=== PATIENT | male | born 1990 | race Caucasian/White ===

== ENCOUNTER 2017-11-06 12:14 | Emergency (ER) | payer MEDICAID ==
[2017-11-06] MEDS ORDERED: methylPREDNISolone 125 MG* 2 ML VIAL IV ONE (12:22)
[2017-11-06] MEDS ORDERED: Famotidine IV* 10 MG/ML 2 ML (20 mg) IV ONE (12:22)
[2017-11-06] MEDS ORDERED: diPHENhydraMINE IV* 50 MG/ML 1 ml VIAL (BENADRYL) IV ONE (12:22)
[2017-11-06] MEDS ORDERED: NS 0.9% 1000 ML* 1,000 ML IV SCH (12:30)
[2017-11-06] MEDS ORDERED: Albuterol 2.5 MG/3 ML NEB.SOL* (0.083%) INH ONE (12:33)
[2017-11-06] MEDS ORDERED: EPINEPHrine AMP 1 MG/ML IM ONE (12:35)
[2017-11-06] MEDS ORDERED: NS 0.9% 1000 ML* 2,000 ML IV ONE (14:02)
[2017-11-06 15:37] VITALS: BP 97/60
--- NOTE | 2017-11-06 16:35 | ED ---
Bel Green Thomas, scribed for Rodrigo Magaña MD on 11/06/17 at 1306 . Allergic Reaction/Systemic - HPI Summary HPI Summary: The patient is a 27 year old male who presents to the emergency department after an allergic reaction to eggs about 30 minutes to an hour ago. His throat began swelling, he began wheezing, and he felt his eyes closing. He has hives on his upper back. - History of Current Complaint Chief Complaint: EDAllergicReaction Time Seen by Provider: 11/06/17 12:21 Hx Obtained From: Patient Onset/Duration: Sudden Onset, Started minutes ago - 30-60 minutes ago., Still Present, Worse Since Timing: Constant, Lasting Minutes Severity Initially: Moderate Severity Currently: Moderate Pain Intensity: 0 Character: Swelling, Hives Aggravating Factor(s): Nothing Alleviating Factor(s): Epinephrine Associated Signs And Symptoms: Positive: Cough Wheezing, Difficulty Breathing, Rash, Throat Tightening, Other: - Eyes closing from the hives. - Related Hx Possible Reaction To: Food - Eggs - Allergies/Home Medications Allergies/Adverse Reactions: Allergies Allergy/AdvReac Type Severity Reaction Status Date / Time Eggs or Egg-derived Products Allergy Hives/Diff. Verified 11/06/17 12:28 Breathing/I tching Ibuprofen Allergy Difficulty Verified 11/06/17 12:36 Breathing PMH/Surg Hx/FS Hx/Imm Hx Previously Healthy: Yes Opthamlomology History: Denies: Hx Legally Blind EENT History: Denies: Hx Deafness Infectious Disease History: No Infectious Disease History: Denies: Traveled Outside the [place] in Last 30 Days - Family History Known Family History: Positive: Other - Patient denies relevant FHx - Social History Alcohol Use: None Substance Use Type: Reports: None, Other Substance Use Comment - Amount & Last Used: "pain killers" none x 10 days Smoking Status (MU): Never Smoked Tobacco Review of Systems Eyes: Other - Closing eyes due to swelling. ENT: Other - Throat swelling Respiratory: Other - wheezing Positive: Rash - Face and upper back All Other Systems Reviewed And Are Negative: Yes Physical Exam - Summary Physical Exam Summary: General: well-appearing, no pain distress Skin: warm, color reflects adequate perfusion, dry. There are hives on the face , chest, arms, and back. Head: normal Eyes: EOMI, YONATHAN ENT: He has a hoarse voice. The posterior pharynx is open. Neck: supple, nontender Respiratory: No obvious respiratory distress. Bilateral expiratory wheezing Cardiovascular: RRR Abdomen: soft, nontender Bowel: present Musculoskeletal: normal, strength/ROM intact Neurological: normal, sensory/motor intact, A&O x3 Psychological: He is anxious. Triage Information Reviewed: Yes Vital Signs On Initial Exam: Initial Vitals Temp Pulse Resp BP Pulse Ox 98.6 F 77 22 108/66 95 11/06/17 12:16 11/06/17 12:16 11/06/17 12:16 11/06/17 12:16 11/06/17 12:16 Vital Signs Reviewed: Yes Diagnostics - Vital Signs Vital Signs Temp Pulse Resp BP Pulse Ox 11/06/17 12:47 67 14 97 11/06/17 12:25 77 95 11/06/17 12:22 101/60 11/06/17 12:16 98.6 F 77 22 108/66 95 - Laboratory Lab Statement: Any lab studies that have been ordered have been reviewed, and results considered in the medical decision making process. Allergic Reaction Course/Dx - Course Course Of Treatment: Medications reviewed. Allergies noted. SX IMPROVED IN ED. PATIENT ELOPED WITHOUT DISCHARGE INSTRUCTIONS. - Diagnoses Provider Diagnoses: Allergic reaction - Critical Care Time Critical Care Time: 30-74 min Discharge - Discharge Plan Condition: Stable Disposition: OTHER Discharge Disposition Comment: ELOPED Referrals: No Primary Care Phys,NOPCP [Primary Care Provider] - The documentation as recorded by the Bel irving Thomas accurately reflects the service I personally performed and the decisions made by me, Rodrigo Magaña MD.
== END 2017-11-06 16:05 ==
LOC: ED 12:14
DX: T78.49XA Other allergy, initial encounter (principal); R05 Cough; R06.02 Shortness of breath; R21 Rash and other nonspecific skin eruption; X58.XXXA Exposure to other specified factors, initial encounter
CPT/HCPCS: 94640; 96372; 96374; 96375; 99283; J0171

== ENCOUNTER 2017-11-10 13:06 | Emergency (ER) | payer MEDICAID ==
[2017-11-10 13:17] VITALS: BP 110/64
[2017-11-10 14:14] LABS: Urine Appearance Clear; Urine Blood Negative (Negative); Urine Color Yellow; Urine Ketones Negative (Negative); Urine Protein Negative (Negative); Urine Specific Gravity 1.013 (1.010-1.030); Urine Urobilinogen Negative (Negative)
[2017-11-10 14:19] LABS: ABS Basophils 0 10^3/ul (0-0.2); ABS Eosinophils 0.1 10^3/ul (0-0.6); ABS Lymphocytes 1.3 10^3/ul (1.0-4.8); ABS Monocytes 0.4 10^3/ul (0-0.8); ABS Neutrophils 7.7 10^3/ul (1.5-7.7); ABS Nucleated RBC 0 10^3/ul; Eosinophil % 1.1 % (0-6); Hematocrit 46 % (42-52); Hemoglobin 16.1 g/dl (14.0-18.0); Lymphocyte % 13.3 % (25-47); Mean Corpuscular HGB Conc 35 g/dl (31-36); Mean Corpuscular Hemoglobin 30 pg (27-31); Mean Corpuscular Volume 85 fL (80-94); Mean Platelet Volume 10 um3 (7.4-10.4); Nucleated Red Blood Cells % 0.1; Platelet Count 215 10^3/ul (150-450); Red Blood Count 5.39 10^6/ul (4.0-5.4); Red Cell Distribution Width 13 % (10.5-15); White Blood Count 9.5 10^3/ul (3.5-10.8)
[2017-11-10 14:34] LABS: EGFR Non-African American 117.7 (>60)
--- NOTE | 2017-11-12 07:47 | ED ---
Clem Green Angela, scribed for Robert Peña MD on 11/10/17 at 1401 . Psychiatric Complaint - HPI Summary HPI Summary: This pt is a 27 y/o male presenting to [facility] via police officers on a 9.41. Pt reports he has SI thoughts and plan. He notes he has a history of depression. Pt states he has had recent stress that has recently triggered his SI thoughts. Pt is currently at [facility], he states that he can't function there because he has been having "bad thoughts." - History Of Current Complaint Chief Complaint: EDMentalHealth Time Seen by Provider: 11/10/17 13:41 Hx Obtained From: Patient Onset/Duration: Lasting Days, Still Present Timing: Days Severity Currently: Severe Character: Depressed Aggravating Factor(s): Recent Stress Alleviating Factor(s): Nothing Associated Signs And Symptoms: Positive: Confused Has Suicidal: Reports: Thoughts, With A Plan - Allergies/Home Medications Allergies/Adverse Reactions: Allergies Allergy/AdvReac Type Severity Reaction Status Date / Time Eggs or Egg-derived Products Allergy Hives/Diff. Verified 11/10/17 13:53 Breathing/I tching Ibuprofen Allergy Difficulty Verified 11/10/17 13:53 Breathing PMH/Surg Hx/FS Hx/Imm Hx Respiratory History: Reports: Hx Asthma Sensory History: Denies: Hx Legally Blind, Hx Deafness Opthamlomology History: Denies: Hx Legally Blind Psychiatric History: Reports: Hx Attention Deficit Hyperactivity Disorder, Hx Depression Infectious Disease History: No Infectious Disease History: Denies: Traveled Outside the [place] in Last 30 Days - Family History Known Family History: Positive: Other - Patient denies relevant FHx Negative: Cardiac Disease, Hypertension, Diabetes - Social History Alcohol Use: None Substance Use Type: Reports: Heroin, Other Substance Use Comment - Amount & Last Used: "pain killers" none x 10 days Smoking Status (MU): Light Every Day Tobacco Smoker Review of Systems Negative: Fever, Chills Eyes: Negative ENT: Negative Psychological: Other - SI thoughts Positive: Depressed All Other Systems Reviewed And Are Negative: Yes Physical Exam - Summary Physical Exam Summary: VITAL SIGNS: Reviewed. GENERAL: Patient is a well-developed and nourished male. Patient is not in any acute respiratory distress. HEAD AND FACE: No signs of trauma. No ecchymosis, hematomas or skull depressions. No sinus tenderness. EYES: PERRLA, EOMI x 2, No injected conjunctiva, no nystagmus. EARS: Hearing grossly intact. Ear canals and tympanic membranes are within normal limits. MOUTH: Oropharynx within normal limits. NECK: Supple, trachea is midline, no adenopathy, no JVD, no carotid bruit, no c- spine tenderness, neck with full ROM. CHEST: Symmetric, no tenderness at palpation LUNGS: Clear to auscultation bilaterally. No wheezing or crackles. CVS: Regular rate and rhythm, S1 and S2 present, no murmurs or gallops appreciated. ABDOMEN: Soft, non-tender. No signs of distention. No rebound no guarding, and no masses palpated. Bowel sounds are normal. EXTREMITIES: FROM in all major joints, no edema, no cyanosis or clubbing. NEURO: Alert and oriented x 3. No acute neurological deficits. Speech is normal and follows commands. SKIN: Dry and warm Triage Information Reviewed: Yes Vital Signs On Initial Exam: Initial Vitals Temp Pulse Resp BP Pulse Ox 98.8 F 74 18 110/64 97 11/10/17 13:13 11/10/17 13:13 11/10/17 13:13 11/10/17 13:13 11/10/17 13:13 Vital Signs Reviewed: Yes Diagnostics - Vital Signs Vital Signs Temp Pulse Resp BP Pulse Ox 11/10/17 13:13 98.8 F 74 18 110/64 97 - Laboratory Lab Results: Lab Results 11/10/17 11/10/17 11/10/17 Range/Units 13:50 13:50 14:11 WBC (3.5-10.8) 10^3/ul RBC (4.0-5.4) 10^6/ul Hgb (14.0-18.0) g/dl Hct (42-52) % MCV (80-94) fL MCH (27-31) pg MCHC (31-36) g/dl RDW (10.5-15) % Plt Count (150-450) 10^3/ul MPV (7.4-10.4) um3 Neut % (Auto) (38-83) % Lymph % (Auto) (25-47) % [place] % (Auto) (1-9) % Eos % (Auto) (0-6) % Baso % (Auto) (0-2) % Absolute Neuts (auto) (1.5-7.7) 10^3/ul Absolute Lymphs (auto) (1.0-4.8) 10^3/ul Absolute Monos (auto) (0-0.8) 10^3/ul Absolute Eos (auto) (0-0.6) 10^3/ul Absolute Basos (auto) (0-0.2) 10^3/ul Absolute Nucleated RBC 10^3/ul Nucleated RBC % Sodium 137 (133-145) mmol/L Potassium 4.3 (3.5-5.0) mmol/L Chloride 104 (101-111) mmol/L Carbon Dioxide 27 (22-32) mmol/L Anion Gap 6 (2-11) mmol/L BUN 8 (6-24) mg/dL Creatinine 0.78 (0.67-1.17) mg/dL Est GFR ( Amer) 151.3 (>60) Est GFR (Non-Af Amer) 117.7 (>60) BUN/Creatinine Ratio 10.3 (8-20) Glucose 115 H (70-100) mg/dL Calcium 9.7 (8.6-10.3) mg/dL Total Bilirubin 0.50 (0.2-1.0) mg/dL AST 28 (13-39) U/L ALT 29 (7-52) U/L Alkaline Phosphatase 68 (34-104) U/L Total Protein 7.2 (6.4-8.9) g/dL Albumin 4.5 (3.2-5.2) g/dL Globulin 2.7 (2-4) g/dL Albumin/Globulin Ratio 1.7 (1-3) TSH 0.66 (0.34-5.60) mcIU/mL Urine Color Yellow Urine Appearance Clear Urine pH 8.0 (5-9) Ur Specific [place] 1.013 (1.010-1.030) Urine Protein Negative (Negative) Urine Ketones Negative (Negative) Urine Blood Negative (Negative) Urine Nitrate Negative (Negative) Urine Bilirubin Negative (Negative) Urine Urobilinogen Negative (Negative) Ur Leukocyte Esterase Negative (Negative) Urine Glucose Negative (Negative) Salicylates < 2.50 (<30) mg/dL Urine Opiates Screen None detected (None Detect) Acetaminophen < 15 mcg/mL Ur Barbiturates Screen None detected (None Detect) Ur Phencyclidine Scrn None detected (None Detect) Ur Amphetamines Screen None detected (None Detect) U Benzodiazepines Scrn None detected (None Detect) Urine Cocaine Screen None detected (None Detect) U Cannabinoids Screen None detected (None Detect) Serum Alcohol < 10 (<10) mg/dL 11/10/17 Range/Units 14:11 WBC 9.5 (3.5-10.8) 10^3/ul RBC 5.39 (4.0-5.4) 10^6/ul Hgb 16.1 (14.0-18.0) g/dl Hct 46 (42-52) % MCV 85 (80-94) fL MCH 30 (27-31) pg MCHC 35 (31-36) g/dl RDW 13 (10.5-15) % Plt Count 215 (150-450) 10^3/ul MPV 10 (7.4-10.4) um3 Neut % (Auto) 80.8 (38-83) % Lymph % (Auto) 13.3 L (25-47) % [place] % (Auto) 4.3 (1-9) % Eos % (Auto) 1.1 (0-6) % Baso % (Auto) 0.5 (0-2) % Absolute Neuts (auto) 7.7 (1.5-7.7) 10^3/ul Absolute Lymphs (auto) 1.3 (1.0-4.8) 10^3/ul Absolute Monos (auto) 0.4 (0-0.8) 10^3/ul Absolute Eos (auto) 0.1 (0-0.6) 10^3/ul Absolute Basos (auto) 0 (0-0.2) 10^3/ul Absolute Nucleated RBC 0 10^3/ul Nucleated RBC % 0.1 Sodium (133-145) mmol/L Potassium (3.5-5.0) mmol/L Chloride (101-111) mmol/L Carbon Dioxide (22-32) mmol/L Anion Gap (2-11) mmol/L BUN (6-24) mg/dL Creatinine (0.67-1.17) mg/dL Est GFR ( Amer) (>60) Est GFR (Non-Af Amer) (>60) BUN/Creatinine Ratio (8-20) Glucose (70-100) mg/dL Calcium (8.6-10.3) mg/dL Total Bilirubin (0.2-1.0) mg/dL AST (13-39) U/L ALT (7-52) U/L Alkaline Phosphatase (34-104) U/L Total Protein (6.4-8.9) g/dL Albumin (3.2-5.2) g/dL Globulin (2-4) g/dL Albumin/Globulin Ratio (1-3) TSH (0.34-5.60) mcIU/mL Urine Color Urine Appearance Urine pH (5-9) Ur Specific [place] (1.010-1.030) Urine Protein (Negative) Urine Ketones (Negative) Urine Blood (Negative) Urine Nitrate (Negative) Urine Bilirubin (Negative) Urine Urobilinogen (Negative) Ur Leukocyte Esterase (Negative) Urine Glucose (Negative) Salicylates (<30) mg/dL Urine Opiates Screen (None Detect) Acetaminophen mcg/mL Ur Barbiturates Screen (None Detect) Ur Phencyclidine Scrn (None Detect) Ur Amphetamines Screen (None Detect) U Benzodiazepines Scrn (None Detect) Urine Cocaine Screen (None Detect) U Cannabinoids Screen (None Detect) Serum Alcohol (<10) mg/dL Result Diagrams: 11/10/17 14:11 11/10/17 14:11 Lab Statement: Any lab studies that have been ordered have been reviewed, and results considered in the medical decision making process. Course/Dx - Course Course Of Treatment: This pt is a 27 y/o male presenting to [facility] via police officers on a 9.41. Pt reports he has SI thoughts and plan. He notes he has a history of depression. Pt states he has had recent stress that has triggered his SI thoughts. Pt is currently at [facility], he states that he can't function there because he has been having "bad thoughts.". Test results without any significant abnormalities. The pt is medically cleared at 15:35. Pt is awaiting [facility]. Pt will be signed out to the next ED attending, pending disposition, awaiting [facility]. Pt was evaluated by [facility] and his case was reviewed by Dr. Shin. Dr. Shin recommends for the pt to be discharged back to [facility]. - Differential Dx/Clinical Impression Differential Diagnosis/HQI/PQRI: Positive: Anxiety, Depression, Homicidal Ideation Provider Diagnosis: Suicidal ideation Discharge - Discharge Plan Condition: Stable Disposition: HOME Discharge Disposition Comment: to [facility] Patient Education Materials: Suicide Prevention for Adults (ED) Referrals: No Primary Care Phys,NOPCP [Primary Care Provider] - The documentation as recorded by the Clem irving Angela accurately reflects the service I personally performed and the decisions made by me, Robert Peña MD.
== END 2017-11-10 20:10 | disposition home or self-care (01) ==
LOC: ED 13:06
DX: R45.851 Suicidal ideations (principal); J45.909 Unspecified asthma, uncomplicated; F90.9 Attention-deficit hyperactivity disorder, unspecified type; F32.9 Major depressive disorder, single episode, unspecified; Z88.6 Allergy status to analgesic agent; F17.200 Nicotine dependence, unspecified, uncomplicated
CPT/HCPCS: 36415; 80053; 80307; 80320; 80329; 81003; 84443; 85025; 99283; G0480